=== PATIENT | male | born 1980 | race Caucasian/White ===

== ENCOUNTER 2018-05-13 20:27 | Emergency (ER) | payer OTHER, BC, SELFPAY | END 2018-05-13 23:14 | disposition home or self-care (01) | LOC: M ED 20:27 | DX: S13.9XXA Sprain of joints and ligaments of unspecified parts of neck, initial encounter (principal); S43.402A Unspecified sprain of left shoulder joint, initial encounter; W14.XXXA Fall from tree, initial encounter; Y92.9 Unspecified place or not applicable; Y93.89 Activity, other specified; Y99.9 Unspecified external cause status; D68.0 Von Willebrand disease; Z98.84 Bariatric surgery status; Z79.899 Other long term (current) drug therapy; Z88.1 Allergy status to other antibiotic agents | CPT/HCPCS: 73030 ==

== ENCOUNTER 2022-12-25 13:44 | Emergency (ER) | payer OTHER ==
[~2022-12-25] VITALS: Ht 193 cm; Wt 56.8 kg
[~2022-12-25 13:44] MED LIST: ALLO100T; CYCL5TAB PO; FISH OIL; MOTR200T4; Vicodin; [UNRECOGNIZED DRUG - CODE]
[2022-12-25 17:04] VITALS: BP 146/73; TEMP 98.1; O2SAT 99
== END 2022-12-25 17:07 | disposition home or self-care (01) ==
LOC: M ED 13:44
DX: E86.0 Dehydration (principal); T67.5XXA Heat exhaustion, unspecified, initial encounter; D68.00 Von Willebrand disease, unspecified; Z98.84 Bariatric surgery status; Z87.891 Personal history of nicotine dependence; Z88.1 Allergy status to other antibiotic agents; Z79.899 Other long term (current) drug therapy

== ENCOUNTER 2023-10-24 10:44 | Day surgery (SDC) | payer OTHER ==
[~2023-10-24] VITALS: Ht 193 cm; Wt 139.3 kg
[~2023-10-24 10:44] MED LIST changes: +NS 1,000 ML IV ONE
[2023-10-24] MEDS ORDERED: LIDOCAINE 2% 100MG/5ML SDV (FOR ANES.) As Ordered ONE (13:01)
[2023-10-24] MEDS ORDERED: propofoL 200 MG/20 ML VIAL As Ordered ONE (13:01)
[2023-10-24 13:10] VITALS: TEMP 97.6
[2023-10-24 13:32] VITALS: BP 132/71; O2SAT 94
== END 2023-10-24 13:34 | disposition home or self-care (01) ==
LOC: M OPP 10:44
PROVIDERS: ATTEND Surgery
DX: Z12.11 Encounter for screening for malignant neoplasm of colon (principal); K64.0 First degree hemorrhoids; Z87.891 Personal history of nicotine dependence; Z88.1 Allergy status to other antibiotic agents